=== PATIENT | male | born 1945 | race Caucasian/White ===

== ENCOUNTER 2019-05-14 21:41 | Emergency (ER) | payer MEDICARE ==
[2019-05-14] MEDS ORDERED: 0.9 % SODIUM CHLORIDE 1000ML 1,000 ML IV SCH (22:00)
[2019-05-14 22:02] LABS: ABSOLUTE NEUTROPHIL COUNT 8.75; BASO % 0.3 % (0-6); EOS % 1.3 % (0-6); GRAN % 73.7 % (47-80); HEMATOCRIT 48.6 % (42.0-52.0); HEMOGLOBIN 16.4 gm/dl (14.0-18.0); LYMPH % 16.4 % (16-45); MEAN CELL VOLUME 94.7 fl (81-97); MEAN CORPUSCULAR HGB CONC 33.7 g/dl (32-36); MEAN PLATELET VOLUME 9.2 fl (7.4-10.4); MONO % 8.3 % (0-9); PLATELET COUNT 209 K/uL (130-400); RED BLOOD COUNT 5.13 M/uL (4.40-5.70); RED CELL DISTRIBUTION WIDTH 13.2 % (11.5-14.5); WHITE BLOOD COUNT W/O DIFF 11.9 K/uL (4.2-12.2)
--- NOTE | 2019-05-14 22:04 | Emergency Department Record ---
History of Present Illness - General Chief Complaint: Rapid heartbeat Stated Complaint: RAPIDS HEART RATE HIGH BP Time Seen by Provider: 05/14/19 21:51 Source: Patient Mode of Arrival: Ambulatory Limitations: No limitations - History of Present Illness Initial Comments: 74 yo male presents to ED for evaluation of elevated pulse and blood pressure throughout the day to day. Patient reports recent URI symtpoms for 2 days, denies fevers/chills or productive cough however. Patient does report a history of atrial fibrillation intermittently, does take Xarelto for his symptoms. Patient denies calf pain, swelling, or h/o DVT. Patient has seen Dr. Harley recently as well. MD Complaint: "Heart racing" Onset/Timin -: Days(s) Arrythmia History: Atrial fibrillation Associated Symptoms: Cough Treatments Prior to Arrival: Beta-lashonda - Related Data Home Medications Medication Instructions Recorded Confirmed Last Taken Cholecalciferol (Vitamin D3) 1,000 unit PO DAILY 05/14/19 05/14/19 05/14/19 [Vitamin D3] Cyanocobalamin (Vitamin B-12) 1,000 mcg PO DAILY 05/14/19 05/14/19 05/14/19 [Vitamin B-12] Losartan/Hydrochlorothiazide 1 each PO DAILY 05/14/19 05/14/19 05/14/19 [Hyzaar 100-25 Tablet] Metoprolol Succinate 25 mg PO DAILY 05/14/19 05/14/19 05/14/19 Omeprazole [Prilosec] 20 mg PO DAILY 05/14/19 05/14/19 05/14/19 Propafenone HCl 225 mg PO TID 05/14/19 05/14/19 05/14/19 Pyridoxine HCl [Vitamin B-6] 100 mg PO DAILY 05/14/19 05/14/19 05/14/19 Rivaroxaban [Xarelto] 20 mg PO DAILY 05/14/19 05/14/19 05/14/19 Tamsulosin HCl [Flomax] 0.4 mg PO DAILY 05/14/19 05/14/19 05/14/19 Valacyclovir HCl [Valacyclovir] 500 mg PO ASDIR 05/14/19 05/14/19 Unknown Allergies Allergy/AdvReac Type Severity Reaction Status Date / Time No Known Drug Allergies Allergy Verified 02/02/15 09:02 Travel Screening - Travel/Exposure Within Last 30 Days Have you traveled within the last 30 days?: No - Travel Symptoms Symptom Screening: Headache Review of Systems Constitutional: Denies: Chills, Fever, Malaise, Night sweats Eyes: Denies: Eye discharge, Eye pain ENT: Reports: Congestion. Denies: Ear pain Respiratory: Reports: Cough. Denies: Dyspnea Cardiovascular: Denies: Chest pain, Dyspnea on exertion Endocrine: Denies: Fatigue, Heat or cold intolerance Gastrointestinal: Denies: Abdominal pain, Nausea, Vomiting Genitourinary: Denies: Incontinence, Retention Musculoskeletal: Denies: Arthralgia, Back pain Skin: Denies: Bruising, Change in color Neurological: Denies: Abnormal gait, Confusion, Headache, Seizure Psychiatric: Denies: Anxiety Hematological/Lymphatic: Reports: Easy bleeding, Easy bruising. Denies: Anemia, Blood Clots Past Medical History - SOCIAL HISTORY Smoking Status: Former smoker Alcohol Use: None Drug Use: None - RESPIRATORY Hx Respiratory Disorders: No - CARDIOVASCULAR Hx Cardio Disorders: Yes Hx Hypertension: Yes - NEURO Hx Neuro Disorders: No - GI Hx GI Disorders: No - Hx Genitourinary Disorders: No - ENDOCRINE Hx Endocrine Disorders: No - MUSCULOSKELETAL Hx Musculoskeletal Disorders: No - PSYCH Hx Psych Problems: No - HEMATOLOGY/ONCOLOGY Hx Hematology/Oncology Disorders: No Family Medical History Any Significant Family History?: Yes Hx Cancer: Father Hx Heart Disease: Mother Physical Exam - General General Appearance: Alert, Oriented x3, Cooperative, No acute distress Limitations: No limitations - Head Head exam: Atraumatic, Normocephalic, Normal inspection Head exam detail: negative: Abrasion, Contusion, Davey's sign, General tenderness, Hematoma - Eye Eye exam: Normal appearance. negative: Conjunctival injection, Periorbital swelling, Periorbital tenderness, Scleral icterus - ENT Ear exam: negative: Auricular hematoma, Auricular trauma Nasal Exam: negative: Active bleeding, Discharge, Dried blood, Foreign body Mouth exam: negative: Drooling, Laceration, Muffled voice, Tongue elevation - Neck Neck exam: Normal inspection. negative: Meningismus, Tenderness - Respiratory Respiratory exam: Normal lung sounds bilaterally. negative: Rales, Respiratory distress, Rhonchi, Stridor - Cardiovascular Cardiovascular Exam: Normal rhythm, Normal heart sounds, Tachycardia - GI/Abdominal GI/Abdominal exam: Soft. negative: Rebound, Rigid, Tenderness - Rectal Rectal exam: Deferred - exam: Deferred - Extremities Extremities exam: Normal inspection. negative: Pedal edema, Tenderness - Back Back exam: Denies: CVA tenderness (R), CVA tenderness (L) - Neurological Neurological exam: Alert, Normal gait, Oriented X3 - Psychiatric Psychiatric exam: Normal affect, Normal mood - Skin Skin exam: Normal color. negative: Abrasion Type of lesion: negative: abrasion Course Vital Signs 05/14/19 21:46 Temperature 98.9 F Pulse Rate 131 H Respiratory 20 Rate Blood Pressure 150/101 Pulse Ox 98 - Reevaluation(s) Reevaluation #1: 05/14/19 22:03 EKG: Sinus tachycardia 124 Normal axis, normal intervals ST changes are likely rate related. Reevaluation #2: 05/14/19 22:36 Laboratory studies were reviewed and appear grossly unremarkable for an acute process. CXR: No acute process Reevaluation #3: 05/14/19 22:56 CXR: No acute process Patient's repeat BP improved to 134/84 (improved), pulse low 100's currently down from 124. No clinical evidence for PNA/PE/DVT on examination. Patient is resting comfortably on re-examination No clinical evidence for recurrent atrial fibrillation review of patient's rhythm strips, there is however occaional PACs present. Patient is anticoagulation with Xarelto. Patient appears stable for discharge at this time. Medical Decision Making - Lab Data Result diagrams: 05/14/19 21:55 05/14/19 21:55 Disposition Disposition: Discharge Clinical Impression: Palpitations Hypertension Qualifiers: Hypertension type: unspecified Qualified Code(s): I10 - Essential (primary) hypertension Disposition: Home, Self-Care Condition: (2) Stable Instructions: Heart Palpitations (ED) Additional Instructions: Return to ED if your symptoms worsen or if you have any concerns. Continue home medications as directed. Follow-up with Dr. Harley in 3-5 days as directed. Forms: Patient Portal Access Time of Disposition: 22:59 Quality - Quality Measures Quality Measures: N/A - Blood Pressure Screening Does Patient Have Any of the Following: Active Dx of HTN Blood Pressure Classification: Hypertensive Reading Systolic Measurement: 150 Diastolic Measurement: 101 Screening for High Blood Pressure: Patient Exclusion, Hx of HTN [G9744]
[2019-05-14 22:16] LABS: BLOOD UREA NITROGEN 16 mg/dL (8-23); CREATININE 1.2 mg/dL (0.7-1.2); EST GLOMERULAR FILTRATION RATE > 60 mL/min; TOTAL PROTEIN 7.2 g/dL (6.6-8.7)
[2019-05-14 22:18] LABS: GLUCOSE,RANDOM 122 mg/dL (74-109)
[2019-05-14 22:21] LABS: ALB/GLOB RATIO 1.6 (1.1-1.8); ALBUMIN 4.4 g/dL (4.0-5.0); ALKALINE PHOSPHATASE 62 U/L (40-129); ALT/SGPT 18 U/L (<41); AST/SGOT 30 U/L (10.0-50.0)
[2019-05-14 22:38] LABS: INFLUENZA A NEGATIVE (NEGATIVE); INFLUENZA B NEGATIVE (NEGATIVE)
--- NOTE | 2019-05-14 22:42 | RADIOLOGY REPORT ---
EXAMINATION: Two View Chest Radiographs EXAM DATE: 05/14/2019 10:37 PM TECHNIQUE: Frontal and lateral views INDICATION: cough COMPARISON: None ENCOUNTER: Not applicable FINDINGS: The heart, mediastinum, and pulmonary vasculature are normal. No lung consolidation or pleural effu sions are present. IMPRESSION: No acute cardiopulmonary disease is present. Dictated by: Ignacio Arias MD on 05/14/2019 10:38 PM. .
== END 2019-05-14 23:13 | disposition home or self-care (01) ==
LOC: ER 21:41
DX: R00.2 Palpitations (principal); I10 Essential (primary) hypertension; R05 Cough; I48.91 Unspecified atrial fibrillation; Z87.891 Personal history of nicotine dependence; Z79.01 Long term (current) use of anticoagulants
CPT/HCPCS: 71046; 80053; 84484; 85025; 87400; 93005; 93010; 99284

== ENCOUNTER 2019-05-15 20:32 | Emergency (ER) | payer MEDICARE ==
[2019-05-15] MEDS ORDERED: DILTIAZEM 25MG/5ML VIAL IV ONE (21:09)
[2019-05-15] MEDS ORDERED: DILTIAZEM HCL 125 MG in 0.9 % SODIUM CHLORIDE 100ML 100 ML IV SCH (21:15)
--- NOTE | 2019-05-15 21:16 | Emergency Department Record ---
History of Present Illness - General Chief Complaint: Palpitations Stated Complaint: RAPID HEART BEAT Time Seen by Provider: 05/15/19 20:34 Source: Patient Mode of Arrival: Ambulatory Limitations: No limitations - History of Present Illness Initial Comments: 74 yo male with a past medical history significant for atrial fibrillation returns to ED for an elevation in his heart rate this afternoon. Patient was seen and evaluated for similar symptoms last evening, found to be sinus tachycardia with occasional PACs. Patient's symtpoms were presumably due to an over the counter decongestant that he had taken for URI symptoms. Patient reports that his symptoms were improved this morning, pulse 70's. Patient reports taking a medication this afternoon with increase in his heart rate this evening into the 130's-140's. Patient denies chest discomfort symptoms, fevers, chills, or productive cough symptoms. Complaint: Atrial fibrillation Onset/Timin -: Days(s) Context: Awoke with symptoms, Occurred during rest Arrythmia History: Atrial fibrillation Associated Symptoms: Denies other symptoms - Related Data Allergies Allergy/AdvReac Type Severity Reaction Status Date / Time No Known Drug Allergies Allergy Verified 02/02/15 09:02 Travel Screening - Travel/Exposure Within Last 30 Days Have you traveled within the last 30 days?: No - Travel/Exposure Within Last Year Have you traveled outside the [place] in the last year?: No - Additonal Travel Details Have you been exposed to anyone with a communicable illness?: No - Travel Symptoms Symptom Screening: None Review of Systems Constitutional: Denies: Chills, Fever, Malaise, Night sweats Eyes: Denies: Eye discharge, Eye pain ENT: Denies: Congestion, Ear pain, Epistaxis Respiratory: Denies: Cough, Dyspnea Cardiovascular: Reports: Palpitations. Denies: Chest pain, Dyspnea on exertion Endocrine: Denies: Fatigue, Heat or cold intolerance Gastrointestinal: Denies: Abdominal pain, Nausea, Vomiting Genitourinary: Denies: Incontinence, Retention Musculoskeletal: Denies: Arthralgia, Back pain Skin: Denies: Bruising, Change in color Neurological: Denies: Abnormal gait, Confusion, Headache, Seizure Psychiatric: Denies: Anxiety Hematological/Lymphatic: Reports: Easy bleeding, Easy bruising. Denies: Anemia, Blood Clots Past Medical History - SOCIAL HISTORY Smoking Status: Former smoker Alcohol Use: None Drug Use: None - RESPIRATORY Hx Respiratory Disorders: No - CARDIOVASCULAR Hx Cardio Disorders: Yes Hx Hypertension: Yes - NEURO Hx Neuro Disorders: No - GI Hx GI Disorders: No - Hx Genitourinary Disorders: No - ENDOCRINE Hx Endocrine Disorders: No - MUSCULOSKELETAL Hx Musculoskeletal Disorders: No - PSYCH Hx Psych Problems: No - HEMATOLOGY/ONCOLOGY Hx Hematology/Oncology Disorders: No Family Medical History Any Significant Family History?: No Hx Cancer: Father Hx Heart Disease: Mother Physical Exam - General General Appearance: Alert, Oriented x3, Cooperative, Mild distress Limitations: No limitations - Head Head exam: Atraumatic, Normocephalic, Normal inspection Head exam detail: negative: Abrasion, Contusion, Davey's sign, General tenderness, Hematoma, Laceration - Eye Eye exam: Normal appearance. negative: Conjunctival injection, Periorbital swelling, Periorbital tenderness, Scleral icterus - ENT Ear exam: negative: Auricular hematoma, Auricular trauma Nasal Exam: negative: Active bleeding, Discharge, Dried blood, Foreign body Mouth exam: negative: Drooling, Laceration, Muffled voice, Tongue elevation - Neck Neck exam: Normal inspection. negative: Meningismus, Tenderness - Respiratory Respiratory exam: Normal lung sounds bilaterally. negative: Rales, Respiratory distress, Rhonchi, Stridor - Cardiovascular Cardiovascular Exam: Normal rhythm, Normal heart sounds, Tachycardia - GI/Abdominal GI/Abdominal exam: Soft. negative: Rebound, Rigid, Tenderness - Rectal Rectal exam: Deferred - exam: Deferred - Extremities Extremities exam: Normal inspection. negative: Pedal edema, Tenderness - Back Back exam: Denies: CVA tenderness (R), CVA tenderness (L) - Neurological Neurological exam: Alert, Normal gait, Oriented X3 - Psychiatric Psychiatric exam: Normal affect, Normal mood - Skin Skin exam: Normal color. 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 Villalpando, will accept patient for admission and further evaluation. Reevaluation #2: 01/01/20 21:51 Troponin is negative for myocardial injury. Laboratory studies and CXR from 24 hours ago were reviewed and also appear grossly unremarkable for an acute process. Cardizem qttp is infusing, pulse improved to 110 at this time. EMS contacted for transfer. Disposition Disposition: Transfer Clinical Impression: Atrial fibrillation with RVR Disposition: Acute Care Hospital Transfer Transfer To: [facility] Reason For Transfer: Cardiology consultation Accepting Physician: Irasema Time Discussed w/Accepting Physician: 21:17 Condition: (2) Stable Forms: Patient Portal Access Time of Disposition: 21:17 Quality - Quality Measures Quality Measures: N/A - Blood Pressure Screening Does Patient Have Any of the Following: Active Dx of HTN Blood Pressure Classification: Hypertensive Reading Systolic Measurement: 136 Diastolic Measurement: 94 Screening for High Blood Pressure: Patient Exclusion, Hx of HTN [G9744]
== END 2019-05-15 22:20 | disposition short-term general hospital (02) ==
LOC: ER 20:32
DX: I48.0 Paroxysmal atrial fibrillation (principal); I10 Essential (primary) hypertension; Z87.891 Personal history of nicotine dependence; Z79.01 Long term (current) use of anticoagulants
CPT/HCPCS: 84484; 93005; 93010; 96365; 96375; 99285